=== PATIENT | female | born 1985 | race Caucasian/White ===

== ENCOUNTER 2020-07-17 18:44 | Emergency (ER) | payer OTHER ==
[~2020-07-17] VITALS: Ht 165.1 cm; Wt 83.9 kg
[~2020-07-17 18:44] MED LIST: CLONIDINE HCL0.1 MG PO; DULERA 100 MCG/13 GM INH; LAMOTRIGINE100 MG PO; METFORMIN HCL500 MG PO; PERCOCET 10-321 EACH; PROPRANOLOL HCL40 MG PO; SAPHRIS10 MG PO; SUPRAX100 MG/5 M PO; TRAZODONE HCL50 MG PO
[2020-07-17] MEDS ORDERED: PENICILLIN G BENZATHINE LA 1.2 MU TBX IM STA (19:37)
[2020-07-17] MEDS ORDERED: CLINDAMYCIN HC150 MG PO (19:43)
== END 2020-07-17 20:45 | disposition home or self-care (01) ==
LOC: ER 18:56
DX: K04.7 Periapical abscess without sinus (principal); F41.9 Anxiety disorder, unspecified; A69.20 Lyme disease, unspecified; F32.9 Major depressive disorder, single episode, unspecified
CPT/HCPCS: 99283; J0561

== ENCOUNTER 2020-07-20 12:36 | Emergency (ER) | payer OTHER ==
[~2020-07-20] VITALS: Ht 165.1 cm; Wt 83.9 kg
[~2020-07-20 12:36] MED LIST changes: +CLINDAMYCIN HC150 MG PO
[2020-07-20] MEDS ORDERED: SODIUM CHLORIDE 0.9% 1000ML 1,000 ML IV STA (13:03)
[2020-07-20] MEDS ORDERED: PIPER-TAZ 3.375 GM 50 ML IV ONE (13:15)
[2020-07-20 13:25] LABS: BASOPHILS % 0.3 % (0.0-1.0); EOSINOPHILS # (AUTO) 0.1 (0.0-0.4); EOSINOPHILS % 1.4 % (0.0-6.0); HEMATOCRIT 38.2 % (34.2-44.1); HEMOGLOBIN 12.7 g/dL (12.0-16.0); LYMPHOCYTES # (AUTO) 1.6 (1.0-3.2); LYMPHOCYTES % 24.5 % (18.0-39.1); MEAN CORPUSCULAR HEMOGLOBIN 29.4 pg (28-32); MEAN CORPUSCULAR HGB CONC 33.2 g/dL (31-35); MEAN CORPUSCULAR VOLUME 88.4 fL (81-99); MONOCYTES # (AUTO) 0.3 (0.2-0.8); NEUTROPHILS # (AUTO) 4.5 (2.1-6.9); NEUTROPHILS % 68.5 % (38.7-80.0); PLATELET COUNT 307 x10e3/uL (140-360); RED BLOOD COUNT 4.32 x10e6/uL (3.6-5.1); RED CELL DISTRIBUTION WIDTH 13.2 % (11.7-14.4)
[2020-07-20 13:38] LABS: INR 1.21; PROTHROMBIN TIME 16.1 seconds (11.9-14.5)
[2020-07-20 13:39] LABS: PARTIAL THROMBOPLASTIN TIME 49.3 seconds (23.8-35.5)
[2020-07-20 13:47] LABS: ALANINE AMINOTRANSFERASE 40 IU/L (0-55); ALBUMIN/GLOBULIN RATIO 0.7 (0.8-2.0); ALKALINE PHOSPHATASE 88 IU/L (40-150); ANION GAP 13.5 mmol/L (8-16); BLOOD UREA NITROGEN 11 mg/dL (7-26); BUN/CREATININE RATIO 14 (6-25); CARBON DIOXIDE 26 mmol/L (22-29); CHLORIDE 102 mmol/L (98-107); CREATININE, SERUM 0.81 mg/dL (0.57-1.11); EST GLOMERULAR FILTRATION RATE > 60 ML/MIN (60-); GLUCOSE 129 mg/dL (74-118); POTASSIUM 3.5 mmol/L (3.5-5.1); SODIUM 138 mmol/L (136-145)
[2020-07-20] MEDS ORDERED: VANCOMYCIN 1GM/NS 250 ML 250 ML IV ONE (14:00)
[2020-07-20] MEDS ORDERED: IOPAMIDOL 370 MG/ML 200 ML INFUS..BTL INJ ONE (14:21)
[2020-07-20] MEDS ORDERED: SODIUM CHLORIDE 0.9% 50ML 50 ML ONE (14:21)
[2020-07-20 19:11] VITALS: BP 107/74
[2020-07-20] MEDS ORDERED: SODIUM CHLORIDE 0.9% 1000ML 1,000 ML IV SCH (19:15)
== END 2020-07-20 20:06 | disposition other institution (70) ==
LOC: ER 13:25
DX: K12.2 Cellulitis and abscess of mouth (principal); M27.8 Other specified diseases of jaws; Z01.812 Encounter for preprocedural laboratory examination; Z20.822 Contact with and (suspected) exposure to COVID-19; A69.20 Lyme disease, unspecified; F41.9 Anxiety disorder, unspecified; F32.9 Major depressive disorder, single episode, unspecified
CPT/HCPCS: 36415; 70491; 80053; 85025; 85610; 85730; 87040; 99284; J2543; J3370; J7030; Q9967; U0002

== ENCOUNTER 2021-01-16 19:36 | Emergency (ER) | payer OTHER ==
[~2021-01-16] VITALS: Ht 165.1 cm; Wt 83.9 kg
[2021-01-16] MEDS ORDERED: ONDANSETRON HCL INJ 2MG/ML 2ML 2 MG/ML VIAL IV STA (20:02)
[2021-01-16 20:13] LABS: BASOPHILS % 0.2 % (0.0-1.0); EOSINOPHILS % 0.1 % (0.0-6.0); HEMATOCRIT 41.3 % (34.2-44.1); HEMOGLOBIN 14.8 g/dL (12.0-16.0); LYMPHOCYTES # (AUTO) 1.4 (1.0-3.2); LYMPHOCYTES % 10.3 % (18.0-39.1); MEAN CORPUSCULAR HEMOGLOBIN 30.5 pg (28-32); MEAN CORPUSCULAR HGB CONC 35.8 g/dL (31-35); MEAN CORPUSCULAR VOLUME 85.2 fL (81-99); MONOCYTES # (AUTO) 0.6 (0.2-0.8); MONOCYTES % 4.1 % (4.4-11.3); NEUTROPHILS # (AUTO) 11.7 (2.1-6.9); NEUTROPHILS % 84.8 % (38.7-80.0); PLATELET COUNT 347 x10e3/uL (140-360); RED BLOOD COUNT 4.85 x10e6/uL (3.6-5.1); RED CELL DISTRIBUTION WIDTH 12.6 % (11.7-14.4)
[2021-01-16] MEDS ORDERED: SODIUM CHLORIDE 0.9% 1000ML 1,000 ML IV SCH (20:15)
[2021-01-16 20:30] LABS: AMYLASE 108 U/L (25-125)
[2021-01-16 20:38] LABS: ALBUMIN 3.8 g/dL (3.5-5.0); ALBUMIN/GLOBULIN RATIO 0.8 (0.8-2.0); ANION GAP 22.3 mmol/L (8-16); CALCIUM 10.1 mg/dL (8.4-10.2); CREATININE, SERUM 1.58 mg/dL (0.57-1.11); POTASSIUM 2.3 mmol/L (3.5-5.1)
[2021-01-16] MEDS ORDERED: POTASSIUM CHLORIDE 20MEQ/100ML 100 ML IV STA ×2 (20:41)
[2021-01-16 20:57] LABS: LIPASE 21 U/L (8-78)
== END 2021-01-17 05:29 | disposition other institution (70) ==
LOC: ER 20:00
DX: O26.892 Other specified pregnancy related conditions, second trimester (principal); O21.1 Hyperemesis gravidarum with metabolic disturbance; A69.20 Lyme disease, unspecified; F41.9 Anxiety disorder, unspecified; F42.9 Obsessive-compulsive disorder, unspecified
CPT/HCPCS: 36415; 76815; 80053; 82150; 83690; 84702; 85025; 99284; C9113; J2405; J3480; J7030